=== PATIENT | male | born 2000 | race African-American/Black ===

== ENCOUNTER 2022-01-27 15:18 | Emergency (ER) | payer MEDICAID ==
[~2022-01-27] VITALS: Ht 177.8 cm; Wt 81.8 kg
[2022-01-27 20:54] LABS: BASOPHILS % (AUTO) 0.9 % (0.0-2.0); EOSINOPHILS % (AUTO) 4.6 % (1.0-6.0); HEMATOCRIT 43.3 % (41-53); HEMOGLOBIN 13.6 g/dL (13.5-17.5); MEAN CORPUSCULAR HEMOGLOBIN 20.8 pg (26.0-34.0); MEAN CORPUSCULAR HGB CONC 31.3 G/dL (31.0-37.0); MEAN CORPUSCULAR VOLUME 66 fL (80-100); MONOCYTES # (AUTO) 0.5 K/uL (0.1-1.0); NEUTROPHILS % (AUTO) 50.5 % (40.0-70.0); PLATELET COUNT (AUTO) 305 K/uL (150-450); RED BLOOD CELL COUNT(AUTO) 6.52 MIL/uL (4.50-5.90); RED CELL DISTRIBUTION WIDTH 14.7 % (11.5-14.5)
[2022-01-27] MEDS ORDERED: CEPH-558 PO (21:19)
[2022-01-27 21:42] VITALS: BP 121/64
[2022-01-28] MEDS ORDERED: CEPH-558 PO (18:24)
== END 2022-01-27 21:45 | disposition home or self-care (01) ==
LOC: EMS 15:18
DX: R59.0 Localized enlarged lymph nodes (principal)
CPT/HCPCS: 85025; 99283

== ENCOUNTER 2022-09-08 17:47 | Emergency (ER) | payer MEDICAID, OTHER ==
[~2022-09-08] VITALS: Ht 180.3 cm; Wt 77.3 kg
[~2022-09-08 17:47] MED LIST: CEPH-558 PO
[2022-09-08 17:56] VITALS: BP 135/60
[2022-09-08] MEDS ORDERED: SODIUM CHLORIDE 0.9% 1,000 ML IV ONE ×2 (18:45→19:45)
[2022-09-08] MEDS ORDERED: KETOROLAC TROMETHAMINE 30 MG/ML VIAL IVP ONE (18:45)
[2022-09-08] MEDS ORDERED: ONDANSETRON HCL 4 MG/2 ML VIAL IVP ONE (18:45)
[2022-09-08 18:57] LABS: COVID AG,FIA SOURCE NASOPHARYNGEAL
[2022-09-08 19:05] LABS: BASOPHILS % (AUTO) 0.2 % (0.0-2.0); EOSINOPHILS % (AUTO) 1.3 % (1.0-6.0); HEMATOCRIT 46.1 % (41-53); HEMOGLOBIN 14.6 g/dL (13.5-17.5); LYMPHOCYTES # (AUTO) 0.4 K/uL (1.0-4.8); LYMPHOCYTES % (AUTO) 9.5 % (22.0-44.0); MEAN CORPUSCULAR HEMOGLOBIN 21.1 pg (26.0-34.0); MEAN CORPUSCULAR HGB CONC 31.6 G/dL (31.0-37.0); MEAN CORPUSCULAR VOLUME 67 fL (80-100); MONOCYTES # (AUTO) 0.3 K/uL (0.1-1.0); MONOCYTES % (AUTO) 7.5 % (2.0-9.0); NEUTROPHILS # (AUTO) 3.8 K/uL (1.8-7.7); NEUTROPHILS % (AUTO) 81.5 % (40.0-70.0); PLATELET COUNT (AUTO) 195 K/uL (150-450); RED CELL DISTRIBUTION WIDTH 15.3 % (11.5-14.5)
[2022-09-08 19:17] LABS: ANION GAP 3 mmol/L (8-16); CALCIUM, TOTAL 8.8 mg/dL (8.8-10.5); CARBON DIOXIDE 27 mmol/L (22-29); CHLORIDE 99 mmol/L (98-107); GLOMERULAR FILTR. RATE CALC > 60 mL/min (>60); GLUCOSE,RANDOM 93 mg/dL (70-110); POTASSIUM 3.5 mmol/L (3.5-5.1); SODIUM SERUM 129 mmol/L (136-145); UREA NITROGEN, BLOOD 15 mg/dL (7-18)
[2022-09-08 19:21] LABS: ALANINE AMINOTRANSFERASE 31 U/L (12-78); ALBUMIN 4.1 g/dL (3.4-5.0); ALKALINE PHOSPHATASE 95 U/L (46-116); ASPARTATE AMINOTRANSFERASE 12 U/L (15-37); BILIRUBIN,TOTAL 0.5 mg/dL (0.1-1.0); LIPASE 72 U/L (73-393); TOTAL PROTEIN, SERUM 7.9 g/dL (6.4-8.2)
[2022-09-08 19:26] LABS: INFLUENZA TYPE A NEGATIVE FOR TYPE A (NEGATIVE); INFLUENZA TYPE B NEGATIVE FOR TYPE B (NEGATIVE)
[2022-09-08 20:38] LABS: APPEARANCE,URINE CLEAR (CLEAR); BILIRUBIN,URINE NEGATIVE (NEGATIVE); GLUCOSE, URINE (UA) NEGATIVE (NEGATIVE); LEUKOCYTE ESTERASE ,URINE NEGATIVE (NEGATIVE); NITRATE,URINE NEGATIVE (NEGATIVE); OCCULT BLOOD,URINE NEGATIVE (NEGATIVE); PROTEIN,URINE TRACE mg/dL (NEGATIVE); SPECIFIC GRAVITIY, URINE 1.038 (1.003-1.030)
[2022-09-08 20:58] LABS: BACTERIA,URINE None Seen /HPF (None Seen); MUCUS,URINE Few LPF (None Seen); RBC,URINE 0-2 /HPF (0-2); SQUAMOUS EPITHELIAL CELL,UR None Seen /LPF (None Seen); WBC,URINE None Seen /HPF (0-5)
== END 2022-09-08 23:45 | disposition home or self-care (01) ==
LOC: EMS 17:54
DX: R10.9 Unspecified abdominal pain (principal); Z20.822 Contact with and (suspected) exposure to COVID-19
CPT/HCPCS: 99285; 74176; 96374; 96361; 96375; 87426; 80053; 81001; 83690; 85025; 87804; 36415; J1885; J2405; J7030

== ENCOUNTER 2022-10-21 08:24 | Emergency (ER) | payer OTHER ==
[~2022-10-21] VITALS: Ht 177.8 cm; Wt 84.1 kg
[2022-10-21] MEDS ORDERED: SODIUM CHLORIDE 0.9% 250 ML IV ONE (11:00)
[2022-10-21 11:06] LABS: BASOPHILS % (AUTO) 0.9 % (0.0-2.0); EOSINOPHILS % (AUTO) 3.9 % (1.0-6.0); HEMATOCRIT 41.1 % (41-53); LYMPHOCYTES # (AUTO) 1.7 K/uL (1.0-4.8); LYMPHOCYTES % (AUTO) 36.6 % (22.0-44.0); MEAN CORPUSCULAR HGB CONC 31.5 G/dL (31.0-37.0); MEAN CORPUSCULAR VOLUME 67 fL (80-100); MONOCYTES # (AUTO) 0.4 K/uL (0.1-1.0); MONOCYTES % (AUTO) 8.7 % (2.0-9.0); NEUTROPHILS # (AUTO) 2.4 K/uL (1.8-7.7); NEUTROPHILS % (AUTO) 49.9 % (40.0-70.0); PLATELET COUNT (AUTO) 230 K/uL (150-450); RED BLOOD CELL COUNT(AUTO) 6.16 MIL/uL (4.50-5.90); RED CELL DISTRIBUTION WIDTH 16.3 % (11.5-14.5)
[2022-10-21 11:15] LABS: ANION GAP 0 mmol/L (8-16); CARBON DIOXIDE 28 mmol/L (22-29); CHLORIDE 106 mmol/L (98-107); GLOMERULAR FILTR. RATE CALC > 60 mL/min (>60); GLUCOSE,RANDOM 85 mg/dL (70-110); POTASSIUM 4.2 mmol/L (3.5-5.1); SODIUM SERUM 134 mmol/L (136-145)
[2022-10-21 11:21] LABS: ALANINE AMINOTRANSFERASE 28 U/L (12-78); ALBUMIN 3.5 g/dL (3.4-5.0); ALKALINE PHOSPHATASE 86 U/L (46-116); ASPARTATE AMINOTRANSFERASE 20 U/L (15-37); BILIRUBIN,TOTAL 0.3 mg/dL (0.1-1.0); TOTAL PROTEIN, SERUM 6.9 g/dL (6.4-8.2)
[2022-10-21 12:00] VITALS: BP 120/54
== END 2022-10-21 13:34 | disposition home or self-care (01) ==
LOC: EMS 08:27
DX: R11.2 Nausea with vomiting, unspecified (principal)
CPT/HCPCS: 99283; 96360; 80053; 85025; 36415; J7050

== ENCOUNTER 2022-12-20 19:30 | Emergency (ER) | payer OTHER ==
[~2022-12-20] VITALS: Ht 177.8 cm; Wt 84.1 kg
[2022-12-20 19:44] VITALS: TEMP 98.6
[2022-12-20] MEDS ORDERED: KETOROLAC TROMETHAMINE 30 MG/ML VIAL IM ONE (21:30)
[2022-12-20] MEDS ORDERED: IBUP-1492 PO (21:31)
[2022-12-20 21:40] VITALS: BP 137/65; PULSE 78; RESP 14
== END 2022-12-20 21:42 | disposition home or self-care (01) ==
LOC: EMS 19:31
DX: S16.1XXA Strain of muscle, fascia and tendon at neck level, initial encounter (principal); R59.0 Localized enlarged lymph nodes; V89.2XXA Person injured in unspecified motor-vehicle accident, traffic, initial encounter; Y93.89 Activity, other specified; Y92.89 Other specified places as the place of occurrence of the external cause; Y99.8 Other external cause status
CPT/HCPCS: 99283; 96372; J1885